=== PATIENT | female | born 1985 ===

== ENCOUNTER 2024-05-21 16:57 | Emergency (ER) | payer MEDICAID ==
[2024-05-21 17:17] LABS: BASOPHILS ABSOLUTE AUTO 0.05 K/uL (0.00-0.20); BASOPHILS PERCENT AUTO 0.5 % (0.0-1.0); EOSINOPHILS ABSOLUTE AUTO 0.14 K/uL (0.00-0.45); EOSINOPHILS PERCENT AUTO 1.5 % (0.0-6.0); HEMATOCRIT 37.7 % (37.0-47.0); HEMOGLOBIN 13.4 g/dL (12.0-16.0); IMMATURE GRAN ABSOLUTE AUTO 0.01 K/uL (0.00-0.05); IMMATURE GRAN PERCENT AUTO 0.1 % (0.0-0.4); LYMPHOCYTES ABSOLUTE AUTO 3.98 K/uL (1.00-4.80); LYMPHOCYTES PERCENT AUTO 41.9 % (24.0-44.0); MEAN CORPUSCULAR HEMOGLOBIN 31.8 pg (28.0-32.0); MEAN CORPUSCULAR HGB CONC 35.5 g/dL (32.0-36.0); MEAN CORPUSCULAR VOLUME 89.3 fL (83.0-99.0); MEAN PLATELET VOLUME 9.3 fL (9.4-12.3); MONOCYTES ABSOLUTE AUTO 0.66 K/uL (0.00-0.80); MONOCYTES PERCENT AUTO 6.9 % (0.0-8.0); NEUTROPHILS ABSOLUTE AUTO 4.67 K/uL (1.80-7.70); NEUTROPHILS PERCENT AUTO 49.1 % (41.0-71.0); PLATELET COUNT,PLT 266 K/uL (150-400); RED BLOOD CELL COUNT 4.22 M/uL (4.10-5.30); WHITE BLOOD CELL COUNT,WBC 9.51 K/uL (3.9-11.3)
[2024-05-21] MEDS: Sodium Chloride 0.9% 1,000 ML IV ONE (17:21)
[2024-05-21 17:25] LABS: APPEARANCE,URINE CLEAR; BILIRUBIN,URINE NEGATIVE (NEGATIVE); COLOR,URINE YELLOW; GLUCOSE,URINE NEGATIVE (NEGATIVE); KETONES,URINE NEGATIVE (NEGATIVE); LEUKOCYTE ESTERASE,URINE NEGATIVE (NEGATIVE); NITRITE,URINE NEGATIVE (NEGATIVE); OCCULT BLOOD,URINE SMALL (NEGATIVE); PROTEIN,URINE NEGATIVE (NEGATIVE); UROBILINOGEN,URINE 0.2 EU/dL (<2.0)
[2024-05-21 17:35] LABS: BACTERIA,URINE RARE (NEGATIVE); EPITHELIAL CELLS,URINE OCCASIONAL (NONE-FEW); RBC,URINE 0-2 (0-2/HPF); WBC,URINE 0-3 (0-5/HPF)
[2024-05-21 18:01] LABS: A/G RATIO 1.3 (0.9-1.6); ALANINE AMINOTRANSFERASE,ALT 36 IU/L (14-63); ALBUMIN 4.4 g/dL (3.4-5.0); ALKALINE PHOSPHATASE 69 U/L (46-116); ASPARTATE AMNIOTRANSFERASE,AST 19 IU/L (15-37); BILIRUBIN TOTAL 0.3 mg/dL (0.2-1.0); BLOOD UREA NITROGEN,BUN 10 mg/dL (7.0-18.0); CALCIUM 9.1 mg/dL (8.5-10.1); CARBON DIOXIDE,CO2 26.2 mmol/L (21.0-32.0); CHLORIDE,CL 100 mmol/L (98-107); GLUCOSE RANDOM 94 mg/dL (74-106); LIPASE 33 U/L (16-77); POTASSIUM,K 3.6 mmol/L (3.5-5.1); PROTEIN TOTAL,TP 7.9 g/dL (6.4-8.2); SODIUM,NA 139 mmol/L (136-145)
[2024-05-21 18:05] LABS: ESTIMATED GFR 73 mL/min (>60)
== END 2024-05-21 18:19 | disposition home or self-care (01) ==
LOC: MERGE 16:57 → MW.ED 16:57
DX: R10.11 Right upper quadrant pain (principal); Z79.51 Long term (current) use of inhaled steroids; Z79.899 Other long term (current) drug therapy; Z75.8 Other problems related to medical facilities and other health care
CPT/HCPCS: 36415; 80053; 81001; 81025; 83690; 85025; 96360; 99284; J7030; 99283